=== PATIENT | female | born 1970 | race Hispanic/Latino ===

== ENCOUNTER → 2025-08-01 | Outpatient (CLI) | payer BC ==
[~2025-08-01] MED LIST: GADOTERATE MEGLUMINE 10 MMOL/20 ML VIAL IV ONE
--- NOTE | 2025-08-02 00:49 | HMCIMG ---
EXAM: MR Abdomen With and Without Intravenous Contrast CLINICAL HISTORY: R10.10 ??? Upper abdominal pain, unspecified. TECHNIQUE: Multisequence, multiplanar magnetic resonance images of the abdomen obtained before and after intravenous contrast administration. Series acquired: 3 ??? Coronal SSFSE ARC (TR: 738.5, TE: 92.5, Thk: 5.0) 5 ??? Axial SSFSE BH ARC (TR: 676.8, TE: 87.6, Thk: 5.0) 6 ??? Axial 3D Dual Echo BH (TR: 6.5, TE: 2.1, Thk: 4.4) 7 ??? Axial T2 FRFSE Fat Sat KATHLEEN ARC (TR: 71212.0, TE: 106.5, Thk: 4.0) 8 ??? Axial DWI B=500 FB (TR: 3400.0, TE: 59.0, Thk: 6.0) 10 ??? G+ Coronal LAVA ARC (TR: 3.6, TE: 1.7, Thk: 4.4) 900???906 ??? Axial LAVA Dynamic 5-Phase series (TR: 4.5, TE: 1.9, Thk: 4.4). CONTRAST: 16 cc of intravenous Clariscan administered. COMPARISON: None provided. FINDINGS: Lower Thorax: Subtle dependent interstitial prominence in bilateral posterior lower lobes, likely physiologic or gravity-related. No pleural effusion or consolidation. Liver: Normal in size and contour with homogeneous parenchymal signal intensity. No focal lesion identified. Hepatic and portal veins are patent. Gallbladder and Bile Ducts: Gallbladder normal in size and wall thickness. No gallstones or pericholecystic fluid. No intrahepatic or extrahepatic biliary ductal dilatation. Pancreas: Normal in size, shape, and signal. No ductal dilatation or peripancreatic inflammation. Spleen: Normal in size and homogeneous in signal intensity. Adrenals: Adrenal glands normal in contour and signal. No nodules or thickening. Kidneys: Kidneys are normal in size and morphology with preserved corticomedullary differentiation. No hydronephrosis, calculus, or focal renal mass. Stomach and Bowel: Visualised stomach and bowel loops show normal wall thickness. No dilatation or evidence of inflammatory change. Lymph Nodes: No abdominal or retroperitoneal lymphadenopathy. Vasculature: Abdominal aorta and its major branches are of normal calibre. No aneurysm or vascular abnormality. Bones and Soft Tissues: Visualised osseous structures are intact. No soft tissue mass or abnormal enhancement. IMPRESSION: * No acute intra-abdominal abnormality identified. * Subtle dependent interstitial prominence in bilateral posterior lower lobes, likely physiologic or gravity-related. /[place]
== END | disposition home or self-care (01) ==
LOC: RAH 07:48
PROVIDERS: ATTEND Internal Medicine Gastroenterology
DX: R93.2 Abnormal findings on diagnostic imaging of liver and biliary tract (principal); R10.10 Upper abdominal pain, unspecified
CPT/HCPCS: 74183; A9575